=== PATIENT | male | born 1930 | race Caucasian/White ===

== ENCOUNTER 2016-10-18 03:24 | Inpatient (IN) | payer MEDICARE, OTHER ==
--- NOTE | ~2016-10-18 | CN ---
Consultation Report [facility] [address] [facility] [place]. [address] NAME: PAIGE CHAVEZ : 32 STATUS : ADM IN [facility]#: [id number] AGE: 86 ADM/REG DATE : 10/18/16 MR#: [id number] REPORT SERV DATE: 10/19/16 DICTATED BY: DATE: REPORT STATUS : Draft TRANSCRIBED BY: MODL DATE: 10/19/16 CONSULTATION DATE OF CONSULTATION: REASON FOR CONSULTATION: Acute kidney injury and volume overload. HISTORY OF PRESENT ILLNESS: Mr. Chavez is an 86-year-old white male who denies any history of kidney disease in the past. On review of records in 2014, his creatinine was around 1.3 and it looks like through the records for years it was around that. He presented to the hospital with shortness of breath. No chest pain. Apparently, his symptoms started approximately a little over a month ago. He states he does a lot of outdoor activities and is a very active person, and then suddenly approximately a month to month and a half ago was out doing his regular activities and got short of breath. He had evaluation by his regular medical doctor and script editor, was put on some Lasix and some breathing medicines without improvement. In fact, his shortness of breath has continued to increase. On his arrival to the emergency room, he had significant pulmonary edema. He is also tachycardic in the 130s. Given this, he was admitted and diuresed. On his arrival, his creatinine was 1.7, today was 2.24. It has been rechecked since the morning value and down to 2. He has had a little bit of hyperkalemia. Shortness of breath is significantly improved. He denies any dysuria or hematuria. His echocardiogram reveals an EF of 55% with tnbo-op-ynroltfa aortic valve prosthetic regurgitation, EF of 55%. He was having significant orthopnea. He does not know if this has improved yet, but his orthopnea symptoms over the last month to month and a half have significantly progressed. States he really has not slept well any at that time. PAST MEDICAL HISTORY: CHF, coronary artery disease with coronary bypass, AVR, atrial fibrillation, COPD. SOCIAL HISTORY: He is . Lives with his . Has a distant history of tobacco use. Quit some time ago and only smoked for 15 years. No alcohol or illicit drug use. FAMILY MEDICAL HISTORY: No end-stage renal disease. ALLERGIES: NONE. MEDICATIONS: Lipitor, Plavix, coenzyme Q10, NovoLog, Toprol, Anoro Ellipta. He is on Lasix at home. REVIEW OF SYSTEMS: A 12-point review of systems obtained and negative with the exception that in HPI. PHYSICAL EXAMINATION: VITAL SIGNS: Temperature 98, blood pressure 152/74, pulse 108, respiratory rate 18, O2 saturation is 97% on 5 L. Consultation Report [address] [address] NAME: PAIGE CHAVEZ : 32 STATUS : ADM IN PAT#: [id number] AGE: 86 ADM/REG DATE : 10/18/16 MR#: [id number] REPORT SERV DATE: 10/19/16 DICTATED BY: DATE: REPORT STATUS : Draft TRANSCRIBED BY: DEQUAN DATE: 10/19/16 GENERAL: This is a pleasant, cooperative white male. He is awake, alert, and oriented x3, in no acute distress. Answers questions appropriately. Normocephalic and atraumatic. Conjunctivae clear. Sclerae anicteric. Pupils are equal and round. Oral mucosa is moist. NECK: Supple. Carotids are brisk. Neck veins flat. No lymphadenopathy. LUNGS: Respirations are even and unlabored at this point. HEART: Rate is regular. He does have a systolic murmur. ABDOMEN: Soft, nontender. Bowel sounds are active. No masses or hepatosplenomegaly. No bruits. No CVA tenderness. BACK: Within normal limits. EXTREMITIES: Trace edema. No cyanosis or clubbing. SKIN: Warm, dry, and intact. No unusual rashes or skin lesions. NEURO: No focal deficits. Mood and affect, pleasant and appropriate. PERTINENT LABS AND X-RAYS: Sodium 138, potassium 4.7, chloride 103, CO2 of 28, BUN of 39, creatinine of 2, calcium of 9. WBCs 23,000, H and H 14 and 42, platelets 149,000. Chest x- ray, significant improvement in edema, but he has bilateral pleural effusions. Procalcitonin of 0.1. Urinalysis, no protein. He has had small amount of blood on dipstick, but under microscopic exam, only 1 red blood cell per high-power field. IMPRESSION: 1. Acute kidney injury on chronic kidney disease. 2. Pulmonary edema. 3. Pleural effusion. 4. Aal-HT-zldbeufmh myocardial infarction. 5. Atrial fibrillation with rapid ventricular response. 6. History of aortic valve replacement. 7. Chronic obstructive pulmonary disease. PLAN/RECOMMENDATION: Acute kidney injury on CKD secondary to cardiorenal syndrome and creatinine is already improving. We will follow I's and O's and labs. We will start on oral diuretic therapy. We will start with Demadex 20 as Lasix 20 at home was not keeping fluid off. We will follow labs with you. Thank you for the consultation. MARTINA/DEQUAN MARTHA Brink / [id number] CC: Consultation Report [address] [place]. [address] NAME: PAIGE CHAVEZ : 32 STATUS : ADM IN PAT#: [id number] AGE: 86 ADM/REG DATE : 10/18/16 MR#: [id number] REPORT SERV DATE: 10/19/16 DICTATED BY: DATE: REPORT STATUS : Draft TRANSCRIBED BY: MODL DATE: 10/19/16 Estuardo Pepe Jr, MD
--- NOTE | ~2016-10-18 | DS ---
Discharge Summary [facility] [address] [place]. [address] NAME: PAIGE CHAVEZ : 32 STATUS : DIS IN PAT#: [id number] AGE: 86 ADM/REG DATE : 10/18/16 MR#: [id number] REPORT SERV DATE: 10/24/16 DICTATED BY: GENI ROBERTS DATE: 10/23/16 REPORT STATUS : Draft TRANSCRIBED BY: MODL DATE: 10/23/16 ADMISSION DATE: 10/18/2016 DISCHARGE DATE: 10/23/2016 DISCHARGE DIAGNOSES: 1. Acute hypoxic respiratory failure from fluid overload, now the patient does not require home oxygen. 2. Acute kidney injury on chronic kidney disease, stable. 3. Atrial fibrillation and flutter, the patient is rate controlled, and Dr. Corral added Cardizem CD 120 mg once a day on top of his Toprol. 4. Leukocytosis without evidence of infection. 5. Acute on chronic valvular heart disease, failure with volume overload from atrial regurgitation, moderate. 6. Elevated troponin without significant clinical significance. 7. Hyperlipidemia. 8. Bilateral pleural effusions, improved with diuretics. 9. Chronic obstructive pulmonary disease. CONSULTANTS: 1. Dr. Jordan Corral. 2. Dr. Schneider in Pulmonary Medicine. 3. Dr. Moreno from [facility]. HISTORY OF PRESENT ILLNESS: This is an 86-year-old male patient, who came to the hospital with shortness of breath with evidence of fluid overload. Please see dictated H and P. HOSPITAL COURSE: Please see dictated interim discharge summary done by Dr. Pepe. The patient is admitted to hospital with heart failure and atrial fibrillation, and was diuresed. Had a cardiac workup with echocardiogram and nuclear test. Echocardiogram showed a new finding of moderate aortic valve regurgitation. The patient's atrial fibrillation was rate controlled. Calcium channel bi was added and his hypoxia has improved. He does not require home oxygen, and stabilized. Therefore, the patient has decided to go home and follow up with Dr. Corral as an outpatient. Overall, had improvement with IV diuretics and rate control and now, the patient will be discharged home in stable condition. DISCHARGE MEDICATIONS: Cardizem CD 120 mg once a day in addition to his home medications. DISPOSITION: The patient is discharged to home without home oxygen. The patient will be followed by Pulmonary, Dr. Corral, and primary care physician. TIME SPENT: More than 30 minutes. Discharge Summary [address] [address] NAME: PAIGE CHAVEZ : 32 STATUS : DIS IN PAT#: [id number] AGE: 86 ADM/REG DATE : 10/18/16 MR#: [id number] REPORT SERV DATE: 10/24/16 DICTATED BY: GENI ROBERTS DATE: 10/23/16 REPORT STATUS : Draft TRANSCRIBED BY: DEQUAN DATE: 10/23/16 DICTATED BY: Fernando Earl/DEQUAN Geni Roberts M.D. / [id number] CC: Fernando Earl M.D.
--- NOTE | ~2016-10-18 | IDS ---
Interim Discharge Summary [facility] [address] [place]. [address] NAME: PAIGE CHAVEZ : 32 STATUS : ADM IN [facility]#: [id number] AGE: 86 ADM/REG DATE : 10/18/16 MR#: [id number] REPORT SERV DATE: 10/23/16 DICTATED BY: JR. PEPE WILLIAM JOHN DATE: 10/22/16 REPORT STATUS : Draft TRANSCRIBED BY: MODL DATE: 10/22/16 ADMISSION DATE: 10/18/2016 DISCHARGE DATE: 10/22/2016 This interim summary will cover the time period from 10/18/2016 through 10/22/2016. WORKING DIAGNOSES: Include 1. Acute hypoxic respiratory failure due to fluid overload. 2. Acute kidney injury. 3. Atrial fibrillation/flutter. 4. Leukocytosis without evidence of infection. 5. Acute on chronic valvular heart failure with volume overload. 6. Elevated troponin. 7. Hypoglycemia with hemoglobin A1c of 5.7. 8. History of coronary artery disease with bypass grafting. 9. History of aortic valve replacement with regurgitation. 10.Hypokalemia. OPERATIONS, PROCEDURES, AND TREATMENTS: Include 1. Chest x-ray done 10/18/2016, which showed volume overload with bibasilar consolidation. 2. Echocardiogram done 10/18/2016, showed left ventricular systolic function of 55% with right ventricular function at the lower limits of normal. There was dilated left atrium. There was ledm-ue-lzncaxib aortic prosthetic regurgitation which was new since 08/11/2008. 3. Renal ultrasound done 10/20/2016, showed a small nonobstructing bilateral intrarenal calculi, otherwise normal. 4. Chest x-ray done 10/21/2016, showed mildly improved moderate bilateral pleural effusion compared to 10/19/2016, with stable bypass changes. 5. Chest x-ray done 10/22/2016, is pending. CURRENT MEDICATIONS: Please see today's progress note. CONSULTING PHYSICIANS: Include 1. Dr. Lc Pak of pulmonary Medicine. 2. Dr. Cohen of Cardiology. 3. Dr. Moreno of Nephrology. BRIEF HOSPITAL COURSE: This is an 86-year-old male, who presented to the emergency room on 10/18/2016, with complaint of shortness of breath. The patient has a history of heart failure, coronary artery disease with prior bypass, history of aortic valve replacement. The patient had been in a declining state of health for the past few months with increased shortness of breath and dyspnea on exertion. He had recently met with his wire winder, Dr. Soham Velasquez, who gave him some inhalers that did not help. He presented to the emergency room and was in atrial fibrillation with rapid ventricular response at that time and he was placed on a Cardizem drip. Interim Discharge Summary [facility] [id number] [place]. [address] NAME: PAIGE CHAVEZ : 32 STATUS : ADM IN PAT#: [id number] AGE: 86 ADM/REG DATE : 10/18/16 MR#: [id number] REPORT SERV DATE: 10/23/16 DICTATED BY: JR. PEPE WILLIAM JOHN DATE: 10/22/16 REPORT STATUS : Draft TRANSCRIBED BY: DEQUAN DATE: 10/22/16 Initial exam showed a temperature 97.2, blood pressure 172/100, heart rate 137, and respiratory rate of 20. Lung exam showed no crackles. Cardiac exam was rapid. Troponin was 0.07 and brain natriuretic peptide was 266. Chest x-ray as detailed above. EKG showed rapid ventricular response. The patient is admitted to [facility]. He was seen in consultation by Dr. Cohen of Cardiology who recommended echocardiogram and diuresis. The patient was placed on Bumex 1 mg IV q.8 hours and remained on a Cardizem drip. Followup troponins remained elevated, peaking at 0.82. The patient was placed on heparin drip, converted to oral diltiazem and he is planned for a cardiac catheterization today 10/22/2016. He is getting renally protective measures before and after. Regarding the patient's acute kidney injury with diuresis, the patient really did not diurese well; however, his renal markers increased from admission BUN and creatinine of 24 and 1.7 to a BUN of 37 and creatinine of 2.2 on 10/19/2016. The patient was seen in consultation by Nephrology. Diuresis was slowly tapered off, and the patient's renal function improved to a present level of BUN 31 and creatinine 1.5. Regarding atrial fibrillation and flutter, this was controlled with diltiazem. Regarding leukocytosis, the patient had elevated white blood count of 25.5 on 10/19/2016. The night call team was called and the patient was initially placed on vancomycin. Followup procalcitonin, urinalysis, chest x-ray showed no evidence of infection and the patient's antibiotics were stopped and the same morning they were begun. There has been no evidence of infection since that time. As to the valvular heart disease, the patient has a history of aortic valve replacement. Echocardiogram did show moderate regurgitation through this valve which may explain his shortness of breath and hypoxia. The patient was, at one point, on 10 L of oxygen by nasal cannula. Pulmonology was consulted and optimized his inhaled medications. His oxygen has been weaned off without conversational dyspnea. Regarding the patient's, hypoglycemia, his hemoglobin A1c was 5.7, his blood sugars are well controlled on sliding scale insulin. Plan for the patient is possible catheterization today. Check a basic metabolic profile in the morning and discharge after the catheterization if the catheterization is okay and renal function remained stable. My partner will assume care in the morning. EDIN/DEQUAN Estuardo Morataya Interim Discharge Summary [address] [address] NAME: PAIGE CHAVEZ : 32 STATUS : ADM IN PAT#: [id number] AGE: 86 ADM/REG DATE : 10/18/16 MR#: [id number] REPORT SERV DATE: 10/23/16 DICTATED BY: JR. PEPE WILLIAM JOHN DATE: 10/22/16 REPORT STATUS : Draft TRANSCRIBED BY: DEQUAN DATE: 10/22/16 Jr Pepe MD / [id number] CC: Estuardo Pepe Jr, MD Patrick Rhyne, M.D.
--- NOTE | ~2016-10-18 | CN ---
Consultation Report [facility] [address] [place]. [address] NAME: ABRAHAM CHAVEZ : 32 STATUS : ADM IN PAT#: [id number] AGE: 86 ADM/REG DATE : 10/18/16 MR#: [id number] REPORT SERV DATE: 10/19/16 DICTATED BY: GUERO NIEVES DATE: 10/19/16 REPORT STATUS : Draft TRANSCRIBED BY: MODL DATE: 10/19/16 CONSULTATION DATE OF CONSULTATION: 10/19/2016 CHIEF COMPLAINT: Shortness of breath in a patient with volume overload and bilateral pleural effusions. HISTORY OF PRESENT ILLNESS: Mr. Abraham Chavez is a very pleasant 86-year-old white male with a past medical history significant for coronary artery disease, status post CABG, atrial valve repair, atrial fibrillation, and COPD, who presents to [facility] Emergency Room for with complaints of worsening shortness of breath of approximately four weeks' duration. It should be noted that Mr. Chavez has done quite well as an outpatient given his advanced age and comorbidities. Mr. Chavez has recently established his care with Dr. Soham Velasquez for his outpatient pulmonary needs. Per report, he had pulmonary function testing which demonstrated COPD. The patient is unaware of the severity. He is recently started on Anoro Ellipta. The patient quit smoking in 1964, prior to this time, he smoked maybe one pack a day for a period of 15 years. He denies symptomatology consistent with obstructive sleep apnea. Prior to this recent illness, the patient has described his exercise tolerance as excellent often times running 3 miles a day. The patient states that over the last four weeks, he has began to develop worsening shortness of breath. He was eventually seen by his primary care physician who started him on 20 mg of Lasix primarily for his worsening lower extremity edema. He was later referred to our outpatient clinic, but was unable to be seen in a timely fashion and as such was seen by Dr. Soham Velasquez. By his report, he did have pulmonary function testing which suggested COPD and was initiated on an inhaler. His shortness of breath continued to worsen, and he describes worsening lower extremity edema as well as orthopnea. This became so pronounced that he eventually presented to [facility]'s Emergency Room. Upon arrival, the patient was found to be hypertensive. He had a heart rate of 137. His oxygenation was only 84% on supplemental oxygen. Initial blood work revealed a white blood cell count of 10,900. His BNP was 266. His creatinine at this time was 1.67. He did undergo arterial blood gas sampling which revealed a pH 7.52, PaCO2 of 52, PaO2 of 78, and a bicarb of 22.6. EKG suggested that the patient had atrial fibrillation with rapid ventricular response. The patient was placed on Cardizem. BiPAP was ordered although not initiated. The patient did receive IV Lasix. A chest x-ray was obtained, which revealed pulmonary edema as well as bilateral pleural effusions. The patient has subsequently been seen by Cardiology who has continued to diurese with significant improvement in the patient's pulmonary status. He is still requiring supplemental oxygen and does have some persistent dyspnea. For the aforementioned reasons, he has been referred to the Pulmonary Service for further assessment. Consultation Report [address] [address] NAME: ABRAHAM CHAVEZ : 32 STATUS : ADM IN [facility]#: [id number] AGE: 86 ADM/REG DATE : 10/18/16 MR#: [id number] REPORT SERV DATE: 10/19/16 DICTATED BY: GUERO NIEVES DATE: 10/19/16 REPORT STATUS : Draft TRANSCRIBED BY: DEQUAN DATE: 10/19/16 Currently, Mr. Chavez's main pulmonary complaint is shortness of breath. This is worse on exertion and relieved by rest. He does have some persistent oxygen requirements and being on 5 L. He denies productive cough. He has no wheezing. He denies recent upper respiratory infections. He denies previous pneumonias. He does have a formal diagnosis of COPD, but is unaware of the severity. The patient currently denies any murmurs, angina, or palpitations. He does confirm recent worsening orthopnea and dependent edema. In regard to constitutional symptoms, he currently denies fever, chills, nausea, vomiting, chest pain, or abdominal pain. PAST MEDICAL HISTORY: 1. Coronary artery disease, status post CABG in 2008. 2. Atrial fibrillation. 3. COPD. 4. Prostate cancer. PAST SURGICAL HISTORY: 1. CABG. 2. Aortic valve repair. 3. Prostatectomy. FAMILY HISTORY: The patient denies family history of lung disease. SOCIAL HISTORY: The patient is . He previously served in the . 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 He denies any known exposures to dust, silica, or asbestos. TOBACCO/ALCOHOL: As previously mentioned, the patient quit smoking in 1965, prior to this time, he smoked approximately one pack a day for a period of 15 years. MEDICATIONS: Eliquis 2.5 mg, atorvastatin 80 mg, clopidogrel 75 mg, diazepam 5 mg, famotidine 20 mg, furosemide 20 mg, metoprolol 50 mg, and Anoro Ellipta. ALLERGIES: THE PATIENT HAS NO DRUG ALLERGIES. REVIEW OF SYSTEMS: A complete review of systems was performed with pertinent positives and negatives contained within the body of the HPI. PHYSICAL EXAMINATION: VITAL SIGNS: Blood pressure is 143/66, heart rate is 110, T-max is 99.4, respiratory rate is 20, and SpO2 is 94% on 5 L nasal cannula. GENERAL: Mr. Abraham Chavez is a very pleasant 86-year-old white male. He is not currently exhibiting any signs of acute distress. Consultation Report [address] [address] NAME: ABRAHAM CHAVEZ : 32 STATUS : ADM IN [facility]#: [id number] AGE: 86 ADM/REG DATE : 10/18/16 MR#: [id number] REPORT SERV DATE: 10/19/16 DICTATED BY: GUERO NIEVES DATE: 10/19/16 REPORT STATUS : Draft TRANSCRIBED BY: DEQUAN DATE: 10/19/16 SKIN: With appropriate texture and turgor. No rashes, lesions, or ulcers. HEENT: Head: Skull is normocephalic, atraumatic. No masses or lesions. Eyes: Sclerae anicteric. Conjunctiva pink without exudates. Ears: Auricles and tragus without pain to palpation. Nose: Bilateral nasal patency. Throat: Dentition in good repair. Lips, oral mucosa, tongue, palate, and pharynx pink and moist without lesions. NECK: Neck is supple. Trachea midline. THORAX/LUNGS: Thorax is symmetric with equal chest rise. Dullness to percussion posteriorly up to T7. No rales, wheezes, or rhonchi. Very diminished in the bases. CARDIOVASCULAR: Irregular rate and rhythm. ABDOMEN: Soft. Nondistended, nontender. PERIPHERAL VASCULAR: Mild edema, right greater than left. MUSCULOSKELETAL: Full AROM and PROM in all joints. NEUROLOGIC: Cranial nerves 2 through 12 grossly intact. Good muscle bulk and tone bilaterally. PSYCHIATRIC: The patient demonstrates good judgment and insight. The patient is alert and oriented x3. ACCESSORY DATA: Reveals a procalcitonin 0.10, BNP is 266.1, troponin peaked as high as 0.82. Repeat arterial blood gas reveals pH 7.41, PaCO2 of 33, PaO2 of 78, and a bicarb of 20.1. White blood cell count is 25,500. Chest x-ray reveals edema and bilateral pleural effusions. Echocardiogram reveals left ventricular ejection fraction of 55%. Jhrj-oj-ltutfwrs aortic regurgitation. IMPRESSION: 1. Atrial fibrillation with rapid ventricular response. 2. Volume overload. 3. Elevated troponin. 4. Aortic valve regurgitation, tcbw-we-ugmxkysx. 5. Acute kidney injury. 6. Bilateral pleural effusions. 7. Chronic obstructive pulmonary disease. PLAN: 1. Cardiology is currently managing the patient's arrhythmia as well as elevated troponin levels. 2. Nephrology has been consulted in regard to continuing diuretics. 3. In regard to the patient's bilateral pleural effusions, they are likely cardiogenic in nature. We will surveil these with followup chest x-ray and hopefully continue diuretic therapy. 4. In regard to the patient's COPD, we will provide him with bronchodilators. The aforementioned impression and plan has been discussed with Dr. Oakley, who will follow Consultation Report [address] [place]. [address] NAME: ABRAHAM CHAVEZ : 34 STATUS : ADM IN [facility]#: [id number] AGE: 86 ADM/REG DATE : 10/18/16 MR#: [id number] REPORT SERV DATE: 10/19/16 DICTATED BY: GUERO NIEVES DATE: 10/19/16 REPORT STATUS : Draft TRANSCRIBED BY: MODL DATE: 10/19/16 further recommendations. We thank you for this consult and look forward to participating in the care of Mr. Abraham Chavez. GBS/MODL Guero Nieves PA-C / [id number] CC: Estuardo Pepe Jr, MD
--- NOTE | ~2016-10-18 | HP ---
History And Physical [address] [facility] [place]. [address] NAME: PAIGE CHAVEZ : 32 STATUS : ADM Ricardo PAT#: [id number] AGE: 86 ADM/REG DATE : 10/18/16 MR#: [id number] REPORT SERV DATE: 10/18/16 DICTATED BY: OREN RAIN DATE: 10/18/16 REPORT STATUS : Draft TRANSCRIBED BY: MODL DATE: 10/18/16 DATE OF ADMISSION: 10/18/2016 CHIEF COMPLAINT: Shortness of breath. HISTORY OF PRESENT ILLNESS: This is an 86-year-old male, who has a history of congestive heart failure, coronary artery disease with CABG, history of aortic valve replacement, who presents to the emergency room at [facility] with the above-mentioned complaint. History is obtained from the patient and his daughter who is at bedside, I have reviewed the records available on the [facility] system as well. According to Mr. Chavez and his daughter, he had been in his usual state of health, but in the last two months or so he has been slowly declining. His daughter states he has been increasingly more short of breath, especially with exertion and this was becoming worse. They had recently met with Dr. Soham Velasquez, his flight agent, who had run tests and told him that he had COPD, had provided some inhaler medications for treatment as well. However, this has not helped and he continued to get more short of breath. In the last 24 hours he could not even perform activities of daily living and he decided to come to the emergency room to be evaluated. He is a patient of Dr. Jordan Corral. In the emergency room he initially presented with atrial fibrillation with rapid ventricular response, was started on Cardizem infusion for rate control. His chest x-ray showed bilateral pulmonary edema and had slightly elevated BNP as well. He also had hyperglycemia and a slightly elevated troponin as well. Hospitalist Service is asked to admit him for further evaluation and treatment. At the time of my evaluation, he denied any chest pain or palpitations. He does have orthopnea at home. He has gone from one pillow to almost three, sometimes has to sit up in the recliner all night. He has had a cough which was essentially nonproductive, not associated with any hemoptysis, night sweats, or weight loss. He has not had any fevers, chills, nausea, vomiting, diarrhea. Has not had any recent falls or loss of consciousness. No history of hematemesis, hematochezia, or hematuria. No other history of recent travel or exposures other than those mentioned above. 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 SOCIAL HISTORY: He has a remote history of smoking, but has not smoked in a long time. He takes an occasional drink, but denied any recreational drug use. 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 FAMILY HISTORY: Noncontributory. MEDICATIONS: His medications at home were reviewed by me in the chart today and reordered by me. History And Physical [address] [address] NAME: PAIGE CHAVEZ : 32 STATUS : ADM Ricardo PAT#: [id number] AGE: 86 ADM/REG DATE : 10/18/16 MR#: [id number] REPORT SERV DATE: 10/18/16 DICTATED BY: OREN RAIN DATE: 10/18/16 REPORT STATUS : Draft TRANSCRIBED BY: DEQUAN DATE: 10/18/16 REVIEW OF SYSTEMS: As in history of present illness. All other systems were reviewed in detail and are quite unremarkable. PHYSICAL EXAMINATION: GENERAL: This is a pleasant 86-year-old, not in any acute distress. HEENT: Head is atraumatic and normocephalic. He is alert, awake, oriented to time, place, and person. Pupils are equal, reacting to light and accommodating. External ocular muscles are intact. Membranes are moist and pink. Sclerae are nonicteric. NECK: Supple with no jugular venous distention, lymphadenopathy, or thyromegaly. LUNGS: Clear to auscultation with no wheezes, rubs, or crackles. HEART: Heart sounds were irregularly irregular. ABDOMEN: Soft and nontender. Bowel sounds are present. EXTREMITIES: Trace bilateral pitting lower extremity edema, otherwise without any cyanosis, or clubbing. NEUROLOGIC: Grossly intact. No focal sensory or motor deficits. He was able to move all four extremities. Higher functions appeared intact. VITAL SIGNS: His vital signs today showed a temperature of 97.2, pulse 137, respirations 30 a minute, blood pressure was 172/100 upon arrival. Oxygen saturations were 98% on 3 L of oxygen via nasal cannula. LABORATORY DATA: Reviewed on the [facility] system showed a pH of 7.25 on an arterial blood gas, pCO2 was 52, PO2 was 78, and bicarb was 22.3. This was on room air. CMP showed a sodium of 141, potassium of 4.3, chloride 107, CO2 of 24, BUN was 24 with a creatinine of 1.67 which is up from his baseline. The blood glucose was 233. His alkaline phosphatase was 151, ALT and AST were 41 and 49. Troponin was elevated at 0.07 today. BNP was elevated at 266.1. Lactate was 1.8 today. CBC showed a white blood cell count of 10,900. Normal hemoglobin, hematocrit, and platelet count. Urinalysis was not done today. Films of the chest x-ray were reviewed by me on the PACS today and interpreted by me. Today's films were compared to prior films available on the PACS as well. Per my interpretation, there is bilateral pulmonary edema with cardiomegaly and sternotomy in the past. A 12-lead EKG done in the emergency room was reviewed and interpreted by me. There is atrial fibrillation with rapid ventricular response at a rate of 134. IMPRESSION: 1. Shortness of breath. 2. Atrial fibrillation with rapid ventricular response. 3. Volume overload. 4. Acute exacerbation of congestive heart failure. History And Physical [address] [address] NAME: PAIGE CHAVEZ : 32 STATUS : ADM Ricardo PAT#: [id number] AGE: 86 ADM/REG DATE : 10/18/16 MR#: [id number] REPORT SERV DATE: 10/18/16 DICTATED BY: OREN RAIN DATE: 10/18/16 REPORT STATUS : Draft TRANSCRIBED BY: MODL DATE: 10/18/16 5. Acute kidney injury. 6. Hyperglycemia. 7. Elevated troponin. 8. Coronary artery disease with history of coronary artery bypass graft. 9. Aortic valve replacement. PLAN: We will admit Mr. Chavez to the Hospitalist Service with cardiac telemetry for a 24- hour observation period. We will start him on Cardizem infusion for rate control and titrate accordingly. We will also start him on intravenous diuretics, follow output and weights, and get an echocardiogram as well. We will also go ahead and check his A1c. Start him on NovoLog insulin per sliding scale for blood sugar control. We will also follow serial troponins to rule out any acute coronary syndrome, although this elevation may be secondary to demand ischemia. The patient was also started on intravenous heparin infusion in the emergency room for his atrial fibrillation, which we will continue. We will go ahead and consult Dr. Jordan Corral to see him in the morning. Meanwhile, we will start him on bronchodilator treatments, continue supplemental oxygen therapy, and repeat chemistry and CBC in the morning as well. Please see today's orders for all the details. I have discussed the above plans with the patient and his daughter. Their questions were answered and they are agreeable to the above recommendations. Hospitalist Service will be following him during his stay here. /DEQUAN Oren Rain M.D. / [id number] CC: Estuardo Pepe Jr, MD
[2016-10-18 01:39] LABS: BE (BASE EXCESS) -5.5 MEQ/L (0 +/- 2.5); HCO3 (ACTUAL BICARBONATE) 22.3 MEQ/L (23-27); INSTRUMENT SERIAL # 8087; PCO2 (CO2 TENSION) 52 MMHG (35-45); PO2 (O2 TENSION) 78 MMHG (79-93); pH 7.25 (7.37-7.43)
[2016-10-18 01:40] LABS: ALLENS TEST Pos; DEVICE NC; HEMOBLOGIN CONTENT 16.3 G/DL (14-18); METHEMOGLOBIN 0.4 % (0-3); O2 CONTENT 21.1 VOL% (18-24); OPERATOR ID 33449; SAMPLE Arterial
[2016-10-18 02:01] LABS: BASOPHILS 0.7 %; BASOPHILS ABSOLUTE 0.08 10/3/uL (0.0-0.16); EOSINOPHILS 2.1 %; EOSINOPHILS ABSOLUTE 0.23 10/3/uL (0.0-0.53); HEMATOCRIT 45.4 % (40.0-51.0); HEMOGLOBIN 15.4 g/dL (13.6-17.8); IMMATURE GRANULOCYTES 0.6 %; IMMATURE GRANULOCYTES ABSOLUTE 0.06 10/3/uL (0.0-0.11); LYMPHOCYTES 24.7 %; LYMPHOCYTES ABSOLUTE 2.68 10/3/uL (0.67-4.30); MEAN CORPUS HGB CONC 33.9 g/dL (32.0-36.0); MEAN CORPUSCULAR HEMOGLOB 31.2 pg (26.0-34.0); MEAN PLATELET VOLUME 12.3 fL (9.2-13.0); MONOCYTES 6.2 %; MONOCYTES ABSOLUTE 0.67 10/3/uL (0.21-1.20); NEUTROPHILS 65.7 %; NEUTROPHILS ABSOLUTE 7.13 10/3/uL (2.02-8.40); PLATELET COUNT 168 10/3/uL (150-400); RBC DISTRIBUTION WIDTH 14.1 % (12.0-16.0); RED CELL COUNT 4.94 10/6/uL (4.7-6.1); WHITE BLOOD CELLS 10.9 10/3/uL (4.5-10.5)
[2016-10-18 02:08] LABS: MANUAL DIFF NO %; MEAN CORPUSCULAR VOLUME 91.9 fL (80-100)
[2016-10-18 02:12] LABS: INTERNATIONAL NORMAL RATI 1.3 UNITS (-); PARTIAL THROMBO TIME 27.5 SEC (22.5-37.2)
[2016-10-18 02:40] LABS: ALBUMIN 3.8 G/DL (3.5-5.0); ALKALINE PHOSPHATASE 151 U/L (45-117); BUN (BLOOD UREA NITROGEN) 24 MG/DL (6-23); CALCIUM, SERUM 8.6 MG/DL (8.5-10.4); CHEST PAIN PROFILE TAT 0 Hrs 00 Mins; CHLORIDE, SERUM 107 MMOL/L (96-112); CO2 (CARBON DIOXIDE) 24 MMOL/L (24-34); CREATININE 1.67 MG/DL (0.70-1.30); DIRECT BILIRUBIN 0.2 MG/DL (0.0-0.4); GFR AFRICAN AMERICAN 43 ML/MIN (>=60); GFR NON AFRICAN AMERICAN 37 ML/MIN (>=60); GLUCOSE, SERUM 233 MG/DL (60-99); INDIRECT BILIRUBIN(NOT ORDER) 0.5 MG/DL (0.1-0.9); POTASSIUM, SERUM 4.3 MMOL/L (3.5-5.3); SGOT(AST) 49 U/L (5-40); SGPT(ALT) 41 U/L (5-65); SODIUM, SERUM 141 MMOL/L (135-148); TOTAL BILIRUBIN 0.7 MG/DL (0-1.2); TOTAL PROTEIN 7.5 G/DL (6.0-8.5); TROPONIN I 0.07 NG/ML (<0.05)
[2016-10-18 02:44] LABS: LACTATE 1.8 MMOL/L (0.3-2.4)
[~2016-10-18 03:24] MED LIST: ACET500CAP PO; AMOXIL500 MG PO; ASAB PO; BEN25 PO; COQ10100 MG OR; DUREZOL0.05 % OP; ELIQUIS 2.5 MG2.5 MG PO; LIPITOR40 PO; LIPITOR80 MG PO; NITROSTAT0.4 MG SL; PEP20 PO; PEPCID AC PO; PLAVIX PO; TOPXL50 PO; V5 PO; [UNRECOGNIZED DRUG - OTHER]
[2016-10-18 08:40] LABS: BASOPHILS 0.1 %; BASOPHILS ABSOLUTE 0.01 10/3/uL (0.0-0.16); EOSINOPHILS 0.1 %; EOSINOPHILS ABSOLUTE 0.01 10/3/uL (0.0-0.53); HEMATOCRIT 44.7 % (40.0-51.0); HEMOGLOBIN 14.8 g/dL (13.6-17.8); IMMATURE GRANULOCYTES 0.5 %; IMMATURE GRANULOCYTES ABSOLUTE 0.06 10/3/uL (0.0-0.11); LYMPHOCYTES 3.3 %; LYMPHOCYTES ABSOLUTE 0.44 10/3/uL (0.67-4.30); MANUAL DIFF NO %; MEAN CORPUS HGB CONC 33.1 g/dL (32.0-36.0); MEAN CORPUSCULAR HEMOGLOB 30.5 pg (26.0-34.0); MEAN PLATELET VOLUME 12.3 fL (9.2-13.0); MONOCYTES 0.8 %; NEUTROPHILS 95.2 %; NEUTROPHILS ABSOLUTE 12.59 10/3/uL (2.02-8.40); PLATELET COUNT 142 10/3/uL (150-400); RBC DISTRIBUTION WIDTH 14.1 % (12.0-16.0); RED CELL COUNT 4.86 10/6/uL (4.7-6.1); WHITE BLOOD CELLS 13.2 10/3/uL (4.5-10.5)
[2016-10-18 09:07] LABS: BUN (BLOOD UREA NITROGEN) 24 MG/DL (6-23); CHLORIDE, SERUM 104 MMOL/L (96-112); CK-MB 10.1 NG/ML; CO2 (CARBON DIOXIDE) 25 MMOL/L (24-34); CREATININE 1.79 MG/DL (0.70-1.30); GFR AFRICAN AMERICAN 39 ML/MIN (>=60); GFR NON AFRICAN AMERICAN 34 ML/MIN (>=60); PHOSPHORUS, SERUM 2.4 MG/DL (2.5-4.5); SODIUM, SERUM 140 MMOL/L (135-148); ULTRASENSITIVE TSH 0.815 MCIU/ML (0.358-3.740)
[2016-10-18 09:08] LABS: CKMB INDEX (NOT ORD) 5.3; CPK 189 U/L (0-200); GLUCOSE, SERUM 158 MG/DL (60-99); POTASSIUM, SERUM 3.4 MMOL/L (3.5-5.3)
[2016-10-18 09:10] LABS: TROPONIN I 0.81 NG/ML (<0.05)
[2016-10-18] MEDS ORDERED: L20 PO (11:05)
[2016-10-18] MEDS ORDERED: ANOROELLIPTA INH (11:06)
[2016-10-18] MEDS ORDERED: PLAVIX PO (11:07)
[2016-10-18] MEDS ORDERED: LIPITOR80 MG PO (11:07)
[2016-10-18] MEDS ORDERED: V5 PO (11:07)
[2016-10-18] MEDS ORDERED: ACET500CAP PO (11:07)
[2016-10-18] MEDS ORDERED: ELIQUIS 2.5 MG2.5 MG PO (11:07)
[2016-10-18] MEDS ORDERED: TOPXL50 PO (11:07)
[2016-10-18] MEDS ORDERED: PEP20 PO (11:08)
[2016-10-18] MEDS ORDERED: BEN25 PO (11:08)
[2016-10-18] MEDS ORDERED: CO Q-10100 MG PO (11:08)
[2016-10-18] MEDS ORDERED: NITROSTAT0.4 MG SL (11:09)
[2016-10-18] MEDS ORDERED: DUREZOL OPH (11:09)
[2016-10-18 16:30] LABS: TROPONIN I 0.82 NG/ML (<0.05)
[2016-10-19 00:12] LABS: TROPONIN I 0.77 NG/ML (<0.05)
[2016-10-19 01:30] LABS: HEMATOCRIT 42.7 % (40.0-51.0); HEMOGLOBIN 14.2 g/dL (13.6-17.8); MEAN CORPUS HGB CONC 33.3 g/dL (32.0-36.0); MEAN CORPUSCULAR HEMOGLOB 30.6 pg (26.0-34.0); MEAN PLATELET VOLUME 12.4 fL (9.2-13.0); PLATELET COUNT 148 10/3/uL (150-400); RBC DISTRIBUTION WIDTH 14.2 % (12.0-16.0); RED CELL COUNT 4.64 10/6/uL (4.7-6.1)
[2016-10-19 01:31] LABS: WHITE BLOOD CELLS 25.5 10/3/uL (4.5-10.5)
[2016-10-19 01:32] LABS: MANUAL DIFF YES %
[2016-10-19 01:41] LABS: CALCIUM, SERUM 8.7 MG/DL (8.5-10.4); CHLORIDE, SERUM 104 MMOL/L (96-112); CO2 (CARBON DIOXIDE) 26 MMOL/L (24-34); CREATININE 2.24 MG/DL (0.70-1.30); GFR AFRICAN AMERICAN 30 ML/MIN (>=60); GFR NON AFRICAN AMERICAN 26 ML/MIN (>=60); GLUCOSE, SERUM 150 MG/DL (60-99); POTASSIUM, SERUM 5.6 MMOL/L (3.5-5.3); SODIUM, SERUM 136 MMOL/L (135-148)
[2016-10-19 01:42] LABS: BUN (BLOOD UREA NITROGEN) 37 MG/DL (6-23)
[2016-10-19 02:28] LABS: BAND NEUTROPHILS 1 %; LYMPHOCYTES 11 %; LYMPHOCYTES ABSOLUTE (CALC) 2.81 10/3/uL (0.67-4.30); MONOCYTES 4 %; MONOCYTES ABSOLUTE (CALC) 1.02 10/3/uL (0.21-1.20); NEUTROPHILS ABSOLUTE (CALC) 21.68 10/3/uL (2.02-8.40); PLATELET ESTIMATE ADQ (ADEQUATE); RBC MORPHOLOGY NORM (NORMAL); SEGMENTED NEUTROPHIL (0) 84 %; TOTAL NUCLEATED CELLS 100
[2016-10-19 04:33] LABS: ALLENS TEST Pos; BE (BASE EXCESS) -3.6 MEQ/L (0 +/- 2.5); CARBOXYHEMOGLOBIN 0.5 % (0-3); DEVICE HFNC; HCO3 (ACTUAL BICARBONATE) 20.1 MEQ/L (23-27); HEMOBLOGIN CONTENT 15.1 G/DL (14-18); INSTRUMENT SERIAL # 35151; METHEMOGLOBIN 0.4 % (0-3); O2 CONTENT 20.1 VOL% (18-24); OPERATOR ID 13415; PCO2 (CO2 TENSION) 33 MMHG (35-45); PO2 (O2 TENSION) 78 MMHG (79-93); SAMPLE Arterial; pH 7.41 (7.37-7.43)
[2016-10-19 06:09] LABS: ASCORBIC ACID (UR NOT ORDER) NEG (NEG); BILIRUBIN, URINE NEGATIVE (NEG); KETONE, URINE NEGATIVE (NEG); LEUKOCYTE ESTERASE(NOT OR NEG (NEG); WBC (NOT ORDERED) (RFLEX) 1 (0-5)
[2016-10-19 15:47] LABS: BASOPHILS 0.1 %; BASOPHILS ABSOLUTE 0.02 10/3/uL (0.0-0.16); EOSINOPHILS 0.3 %; EOSINOPHILS ABSOLUTE 0.06 10/3/uL (0.0-0.53); HEMATOCRIT 42.3 % (40.0-51.0); HEMOGLOBIN 14.3 g/dL (13.6-17.8); IMMATURE GRANULOCYTES 0.5 %; IMMATURE GRANULOCYTES ABSOLUTE 0.11 10/3/uL (0.0-0.11); LYMPHOCYTES 7.1 %; LYMPHOCYTES ABSOLUTE 1.64 10/3/uL (0.67-4.30); MEAN CORPUS HGB CONC 33.8 g/dL (32.0-36.0); MEAN CORPUSCULAR VOLUME 91.6 fL (80-100); MEAN PLATELET VOLUME 12.6 fL (9.2-13.0); MONOCYTES 5.8 %; MONOCYTES ABSOLUTE 1.36 10/3/uL (0.21-1.20); NEUTROPHILS 86.2 %; NEUTROPHILS ABSOLUTE 20.06 10/3/uL (2.02-8.40); PLATELET COUNT 149 10/3/uL (150-400); RBC DISTRIBUTION WIDTH 14.7 % (12.0-16.0); RED CELL COUNT 4.62 10/6/uL (4.7-6.1); WHITE BLOOD CELLS 23.3 10/3/uL (4.5-10.5)
[2016-10-19 15:48] LABS: MANUAL DIFF NO %
[2016-10-19 15:57] LABS: BUN (BLOOD UREA NITROGEN) 39 MG/DL (6-23); CHLORIDE, SERUM 103 MMOL/L (96-112); CO2 (CARBON DIOXIDE) 28 MMOL/L (24-34); CREATININE 2.07 MG/DL (0.70-1.30); GFR AFRICAN AMERICAN 33 ML/MIN (>=60); GFR NON AFRICAN AMERICAN 29 ML/MIN (>=60); GLUCOSE, SERUM 113 MG/DL (60-99); POTASSIUM, SERUM 4.7 MMOL/L (3.5-5.3); SODIUM, SERUM 138 MMOL/L (135-148)
[2016-10-20 04:06] LABS: BASOPHILS 0.4 %; BASOPHILS ABSOLUTE 0.06 10/3/uL (0.0-0.16); EOSINOPHILS 1.5 %; EOSINOPHILS ABSOLUTE 0.24 10/3/uL (0.0-0.53); HEMATOCRIT 39.4 % (40.0-51.0); HEMOGLOBIN 13.2 g/dL (13.6-17.8); IMMATURE GRANULOCYTES 0.4 %; IMMATURE GRANULOCYTES ABSOLUTE 0.07 10/3/uL (0.0-0.11); LYMPHOCYTES 10.3 %; LYMPHOCYTES ABSOLUTE 1.66 10/3/uL (0.67-4.30); MEAN CORPUS HGB CONC 33.5 g/dL (32.0-36.0); MEAN CORPUSCULAR HEMOGLOB 30.6 pg (26.0-34.0); MEAN CORPUSCULAR VOLUME 91.4 fL (80-100); MEAN PLATELET VOLUME 12.6 fL (9.2-13.0); MONOCYTES 7.2 %; MONOCYTES ABSOLUTE 1.17 10/3/uL (0.21-1.20); NEUTROPHILS 80.2 %; NEUTROPHILS ABSOLUTE 12.97 10/3/uL (2.02-8.40); PLATELET COUNT 131 10/3/uL (150-400); RBC DISTRIBUTION WIDTH 14.7 % (12.0-16.0); RED CELL COUNT 4.31 10/6/uL (4.7-6.1); WHITE BLOOD CELLS 16.2 10/3/uL (4.5-10.5)
[2016-10-20 04:08] LABS: MANUAL DIFF NO %
[2016-10-20 04:22] LABS: ALBUMIN 3.3 G/DL (3.5-5.0); BUN (BLOOD UREA NITROGEN) 40 MG/DL (6-23); CALCIUM, SERUM 8.4 MG/DL (8.5-10.4); CHLORIDE, SERUM 107 MMOL/L (96-112); CO2 (CARBON DIOXIDE) 25 MMOL/L (24-34); CREATININE 1.78 MG/DL (0.70-1.30); GFR AFRICAN AMERICAN 40 ML/MIN (>=60); GFR NON AFRICAN AMERICAN 34 ML/MIN (>=60); GLUCOSE, SERUM 109 MG/DL (60-99); SODIUM, SERUM 138 MMOL/L (135-148)
[2016-10-20 04:23] LABS: PHOSPHORUS, SERUM 4.5 MG/DL (2.5-4.5); TROPONIN I 0.39 NG/ML (<0.05)
[2016-10-21 04:34] LABS: ALBUMIN 3.3 G/DL (3.5-5.0); BUN (BLOOD UREA NITROGEN) 37 MG/DL (6-23); CALCIUM, SERUM 8.7 MG/DL (8.5-10.4); CHLORIDE, SERUM 106 MMOL/L (96-112); CO2 (CARBON DIOXIDE) 26 MMOL/L (24-34); CREATININE 1.69 MG/DL (0.70-1.30); GFR AFRICAN AMERICAN 42 ML/MIN (>=60); GFR NON AFRICAN AMERICAN 36 ML/MIN (>=60); GLUCOSE, SERUM 101 MG/DL (60-99); PHOSPHORUS, SERUM 4.5 MG/DL (2.5-4.5); POTASSIUM, SERUM 3.3 MMOL/L (3.5-5.3); SODIUM, SERUM 140 MMOL/L (135-148)
[2016-10-21 04:36] LABS: TROPONIN I 0.28 NG/ML (<0.05)
[2016-10-22 05:32] LABS: BASOPHILS 0.6 %; BASOPHILS ABSOLUTE 0.06 10/3/uL (0.0-0.16); EOSINOPHILS 2.4 %; EOSINOPHILS ABSOLUTE 0.25 10/3/uL (0.0-0.53); HEMATOCRIT 39.3 % (40.0-51.0); HEMOGLOBIN 13.1 g/dL (13.6-17.8); LYMPHOCYTES 22.5 %; LYMPHOCYTES ABSOLUTE 2.32 10/3/uL (0.67-4.30); MANUAL DIFF NO %; MEAN CORPUS HGB CONC 33.3 g/dL (32.0-36.0); MEAN CORPUSCULAR HEMOGLOB 30.3 pg (26.0-34.0); MEAN CORPUSCULAR VOLUME 90.8 fL (80-100); MEAN PLATELET VOLUME 12.7 fL (9.2-13.0); MONOCYTES 9.2 %; MONOCYTES ABSOLUTE 0.95 10/3/uL (0.21-1.20); NEUTROPHILS 64.3 %; NEUTROPHILS ABSOLUTE 6.65 10/3/uL (2.02-8.40); PLATELET COUNT 127 10/3/uL (150-400); RBC DISTRIBUTION WIDTH 14.5 % (12.0-16.0); RED CELL COUNT 4.33 10/6/uL (4.7-6.1); WHITE BLOOD CELLS 10.3 10/3/uL (4.5-10.5)
[2016-10-22 05:36] LABS: INTERNATIONAL NORMAL RATI 1.2 UNITS (-); PROTIME (NOT ORD) 15.5 SEC (12.0-14.5)
[2016-10-22 05:48] LABS: BUN (BLOOD UREA NITROGEN) 31 MG/DL (6-23); CHLORIDE, SERUM 111 MMOL/L (96-112); CHOLESTEROL 126 MG/DL (< 200); CO2 (CARBON DIOXIDE) 26 MMOL/L (24-34); CREATININE 1.53 MG/DL (0.70-1.30); GFR AFRICAN AMERICAN 48 ML/MIN (>=60); GFR NON AFRICAN AMERICAN 41 ML/MIN (>=60); GLUCOSE, SERUM 106 MG/DL (60-99); HDL CHOLESTEROL 64 MG/DL (> 39); LDL CHOLESTEROL 49 MG/DL (< 130); NON-HDL CHOLESTEROL 62 MG/DL (< 160); PARTIAL THROMBO TIME > 150.0 SEC (22.5-37.2); POTASSIUM, SERUM 3.7 MMOL/L (3.5-5.3); SODIUM, SERUM 140 MMOL/L (135-148); TRIGLYCERIDE 66 MG/DL (< 150)
[2016-10-23 05:56] LABS: CHLORIDE, SERUM 106 MMOL/L (96-112); CREATININE 1.64 MG/DL (0.70-1.30); GFR AFRICAN AMERICAN 44 ML/MIN (>=60); GFR NON AFRICAN AMERICAN 38 ML/MIN (>=60); GLUCOSE, SERUM 98 MG/DL (60-99); POTASSIUM, SERUM 3.8 MMOL/L (3.5-5.3); SODIUM, SERUM 142 MMOL/L (135-148)
[2016-10-23 05:58] LABS: BUN (BLOOD UREA NITROGEN) 27 MG/DL (6-23); CO2 (CARBON DIOXIDE) 31 MMOL/L (24-34)
[2016-10-23] MEDS ORDERED: CARDCD120 PO (09:57)
[2017-01-07] MEDS ORDERED: BUM1 PO (00:36)
[2017-01-07] MEDS ORDERED: CELEXA10 PO (00:37)
[2017-01-07] MEDS ORDERED: DUREZOL (00:39)
[2017-01-07] MEDS ORDERED: AMOXIL500C PO (00:43)
[2017-01-07] MEDS ORDERED: TUSSIN PO (00:44)
[2017-01-07] MEDS ORDERED: BEN25 PO (00:45)
[2017-01-11] MEDS ORDERED: DEMA10T PO (15:24)
[2017-01-11] MEDS ORDERED: KLOR-CON M2020 MEQ PO (15:25)
[2017-01-11] MEDS ORDERED: BUM1 PO (16:19)
[2017-01-11] MEDS ORDERED: BUM2 PO (16:19)
[2017-02-20] MEDS ORDERED: BUM2 PO (10:32)
[2017-02-20] MEDS ORDERED: KLOR-CON M2020 MEQ PO (10:39)
[2017-02-20] MEDS ORDERED: PLAVIX PO (10:40)
[2017-02-20] MEDS ORDERED: LIPITOR80 MG PO (10:40)
[2017-02-20] MEDS ORDERED: TAZTIA X3 PO (10:41)
[2017-02-20] MEDS ORDERED: TOPXL100 PO (10:44)
[2017-02-20] MEDS ORDERED: NITROSTAT0.4 MG SL (10:45)
[2017-02-20] MEDS ORDERED: [UNRECOGNIZED DRUG - OTHER] PO (10:46)
[2017-02-20] MEDS ORDERED: PEP20 PO (10:46)
[2017-02-20] MEDS ORDERED: CO Q-10100 MG PO (10:48)
[2017-02-20] MEDS ORDERED: AMOXIL500 MG PO (10:48)
[2017-02-20] MEDS ORDERED: ELIQUIS 2.5 MG2.5 MG PO (10:57)
== END 2016-10-23 11:01 | disposition home or self-care (01) | DRG 682 ==
LOC: ER 03:24 → 5NO 04:06 → SDC/OF 14:21 → 5NO 14:28
PROVIDERS: Internal Medicine; Internal Medicine Cardiovascular Disease; Internal Medicine Pulmonary Disease; Nurse Practitioner Family; Specialist
DX: N17.9 Acute kidney failure, unspecified (principal); I50.23 Acute on chronic systolic (congestive) heart failure; J96.01 Acute respiratory failure with hypoxia; J90 Pleural effusion, not elsewhere classified; I13.0 Hypertensive heart and chronic kidney disease with heart failure and stage 1 through stage 4 chronic kidney disease, or unspecified chronic kidney disease; I48.92 Unspecified atrial flutter; I48.91 Unspecified atrial fibrillation; I25.10 Atherosclerotic heart disease of native coronary artery without angina pectoris; Z95.1 Presence of aortocoronary bypass graft; Z95.2 Presence of prosthetic heart valve; J44.9 Chronic obstructive pulmonary disease, unspecified; Z87.891 Personal history of nicotine dependence; Z85.46 Personal history of malignant neoplasm of prostate; Z79.01 Long term (current) use of anticoagulants; E87.6 Hypokalemia; N18.3 Chronic kidney disease, stage 3 (moderate)
CPT/HCPCS: 36600; 71010; 71020; 76775; 78452; 80048; 80061; 80069; 80076; 81001; 82550; 82553; 82805; 82962; 83036; 83605; 83735; 83880; 84100; 84132; 84145; 84443; 84484; 85025; 85610; 85730; 87040; 93005; 93017; 93306; 94640; 94660; 96374; 96375; 99285; A9270-GY; A9502; J0280; J0610; J2785; J3370

== ENCOUNTER 2016-11-05 09:04 | Inpatient (IN) | payer MEDICARE, OTHER ==
--- NOTE | ~2016-11-05 | HP ---
History And Physical [address] [address] NAME: PAIGE CHAVEZ : 32 STATUS : ADM IN PAT#: [id number] AGE: 86 ADM/REG DATE : 11/05/16 MR#: [id number] REPORT SERV DATE: 11/05/16 DICTATED BY: MASON JAMES DATE: 11/05/16 REPORT STATUS : Draft TRANSCRIBED BY: MODL DATE: 11/05/16 DATE OF ADMISSION: 11/05/2016 REASON FOR ADMISSION: Progressive congestive heart failure and pleural effusions. HISTORY OF PRESENT ILLNESS: This is an 86-year-old white male, who was just discharged from the hospital by Dr. Geni [place] on 10/23/2016. He had two to three days of feeling fairly well; however, since that time, he has had increasing shortness of breath.. He was to see Dr. Vincenzo Kirkland today at 1545 hours. He has not yet followed up with Dr. Mathew Corral, but has an appointment tomorrow. He presented to the emergency room with increasing shortness of breath. He is seen by Dr. Killian Márquez. Dr. Márquez requested admission to the hospital for straightening out of this situation. He was diagnosed with COPD by Dr. Derick Velasquez in the past by pulmonary function testing, though he has not smoked in about the last 50 years. He is followed now by Dr. Enrique Schneider. He says that his mitral valve is leaking some now, and he is having the need for more diuretic. He was discharged with Lasix 20 mg p.o. daily, He was seen by Dr. Márquez earlier and started on IV Cardizem to control heart rate and has now the heart rate down to around 100 on the IV Cardizem. He was given Lasix 40 mg IV. His creatinine was 1.56. The patient is being admitted to the hospital for further adjustments in his diuretics to the limit of what his chronic renal disease will tolerate in consultation with Dr. Corral. The patient says he would have another operation with Dr. Corral to deem this necessary. The patient has been in atrial fibrillation since 2013 after a failed DC cardioversion. He is admitted for adjustments of medications and control of the pulmonary edema and pleural effusions. PAST MEDICAL HISTORY: Recently hospitalized with congestive heart failure. He has longstanding history of atrial fibrillation. He has known coronary artery disease status post CABG in 2009, mitral valve [place] [address] Guajardo. He does have a history of COPD with a history of smoking as very remote. HOME MEDICATIONS: Include the following: Acetaminophen 1000 mg p.o. three times a day, Lipitor 10 mg p.o. daily, Plavix 75 mg p.o. daily, coenzyme Q 100 mg p.o. daily, Valium 5 mg p.o. at bedtime as needed, diltiazem 120 mg CD daily, famotidine 20 mg p.o. twice daily p.r.n., Lasix 20 mg p.o. daily, metoprolol succinate 50 mg p.o. every morning, nitroglycerin 0.4 sublingually p.r.n., and Neosporin ointment as needed. History And Physical [address] [address] NAME: PAIGE CHAVEZ : 32 STATUS : ADM IN [facility]#: [id number] AGE: 86 ADM/REG DATE : 11/05/16 MR#: [id number] REPORT SERV DATE: 11/05/16 DICTATED BY: MASON JAMES DATE: 11/05/16 REPORT STATUS : Draft TRANSCRIBED BY: DEQUAN DATE: 11/05/16 ALLERGIES: NONE ARE KNOWN. SOCIAL HISTORY: He is . Lives home with his . 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 He smoked cigarettes until 1965, about 15 years ago. He did not smoke since that time. He takes occasional drink. No recreational drugs. 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 FAMILY HISTORY: There are some high blood pressure and heart disease run in the family. REVIEW OF SYSTEMS: He has had no headache or eye pain. No double vision, nausea, vomiting, or diarrhea. No fits, seizures, convulsions, melena, or hematemesis. He has increasing swelling of his legs. Usually, the left leg swells at the site of the saphenous vein, but both places have been swelling since the discharge from the hospital. He has had dyspnea with exertion. Some cough, but nonproductive. No fever, chills, night sweats, melena, hematemesis, fits, seizures, convulsions, unilateral weakness, nausea, vomiting, or diarrhea. The remainder of the review of systems is negative. PHYSICAL EXAMINATION: GENERAL: Elderly white male, in no acute distress. VITAL SIGNS: Blood pressure initially 147/74, with a heart rate of 130, respiratory rate 24, afebrile, and O2 saturations 83%. HEENT: EOMI. Sclerae clear. Conjunctivae pink. NECK: No bruit, he does have JVD at 30 degrees. CHEST: Clear with dullness to percussion at both bases. HEART: Irregularly irregular, rapid. No rhonchi, mitral regurgitation murmur ascertained at this rate. ABDOMEN: Soft and nontender. Protuberant. Bowel sounds are positive. EXTREMITIES: Have 4+ pitting edema on the right side, 3+ on the left side. Distal pulses are intact, dorsalis pedis and posterior tibial. SKIN: Stasis changes in the lower extremities bilaterally. NEUROLOGIC: The patient withdraws to plantar stimulation. Skein Dyer is equal and symmetric bilaterally. Coordination is intact. No tremor. He is symmetric and equal neurologically bilaterally. His respiratory rate is elevated. The patient appears dyspneic. LABORATORY DATA: The BNP was 495.7. His sodium 135, potassium 4.7, creatinine 1.56, and BUN is 28. Albumin was 3.8, indirect bilirubin 1.8, with alk phosphatase of 125, and AST 4.5. Troponin 0.005. Hemoglobin 13.7, hematocrit 40.4, white count 12.7, and platelets 139,000. INR 1.3. Portable chest x-ray shows worsening volume overload with congestive heart failure patterns with pleural effusion, increasing bilaterally the basilar areas. ASSESSMENT: 1. Mitral regurgitation, may be mechanical problem with worsening pleural effusions and History And Physical [address] [address] NAME: PAIGE CHAVEZ : 32 STATUS : ADM IN PAT#: [id number] AGE: 86 ADM/REG DATE : 11/05/16 MR#: [id number] REPORT SERV DATE: 11/05/16 DICTATED BY: MASON JAMES DATE: 11/05/16 REPORT STATUS : Draft TRANSCRIBED BY: MODL DATE: 11/05/16 distal edema from the mitral regurgitation. We will consult Dr. Corral to help assess with increased diuretic therapy or replacement of the valve might be a consideration, though at his age, this was thought to be a poor second level of choice because of the risk. 2. Atrial fibrillation, rapid ventricular response. DC cardioversion failure in 2013, has been chronic since that time. The patient has been on Eliquis by his list. 3. Chronic obstructive pulmonary disease. 4. Remote history of cigarette use. He has been under the care of Dr. Schneider most recently. 5. Bilateral pleural effusions, increasing. 6. Status post CABG in 2008 for atherosclerotic cardiovascular disease and mitral valve placed at that time as well. 7. History of gastroesophageal reflux disease. PLAN: I am going to go ahead and increase the diuretics, start with IV Lasix initially and see if we get response. I will discontinue the IV Cardizem drip once the oral medications given this morning and consult Dr. Corral for further recommendations. DB/MODL Mason James M.D. / [id number] CC: Mason Portillo M.D. Vincenzo Kirkland M.D. Fernando Starr IV, III, M.D., [facility], [facility] Soham Velasquez M.D. Arturo Moreno M.D. Geni [place] M.D.
--- NOTE | ~2016-11-05 | IDS ---
Interim Discharge Summary [facility] [address] [place]. [address] NAME: PAIGE CHAVEZ : 32 STATUS : ADM IN PAT#: [id number] AGE: 86 ADM/REG DATE : 11/05/16 MR#: [id number] REPORT SERV DATE: 11/10/16 DICTATED BY: RICARDA WOLFE DATE: 11/10/16 REPORT STATUS : Draft TRANSCRIBED BY: MODHoda DATE: 11/10/16 ADMISSION DATE: 11/05/2016 DISCHARGE DATE: DIAGNOSES: 1. Acute on chronic fluid overload with bilateral pleural effusions. 2. Diastolic dysfunction. 3. Hypoxia. 4. Acute on chronic kidney disease. 5. Acute on chronic leukocytosis. 6. Chronic atrial fibrillation. PROCEDURES: Thoracentesis of the left pleura with 2.5 L removed. CONSULTANTS: Cardiology with Dr. Corral and Nephrology with Dr. Chew and Dr. Moreno. HOSPITALIST: Dr. Kendell Acevedo and Dr. Wolfe. HOSPITAL COURSE: This is an 86 years old male with a past medical history of diastolic dysfunction and chronic atrial fibrillation, recently discharged from the hospital in October of 2016, who follows up with Dr. Corral, property management bookkeeper, presented with worsening shortness of breath and dyspnea on exertion. He was admitted to agency sales representative with a cardiology consultation with Dr. Jordan Corral. The patient required supplemental oxygen for acute hypoxic respiratory failure. The patient was placed on diuretics for diuresing, however, began to develop some acute on chronic kidney disease, therefore Nephrology was consulted and they have changed him on his diuretic to torsemide due to his intravascular depletion but still was for fluid overload with bilateral effusions and edema. The patient verbally consented for thoracentesis which was performed by Dr. De La Paz with Interventional Radiology with removal of 2.5 L from the left side. The patient's shortness of breath and tachypnea improved as of today. The patient is now on room air and states that he does not have dyspnea on exertion or shortness of breath at rest. He continues on torsemide with good urine output. The plan is for thoracentesis of the right side on Saturday. The patient's previous chest x-ray still with a large right pleural effusion; however, we will repeat a chest x-ray in the morning to ascertain if the patient still requires a right thoracentesis for Saturday. The patient will be followed by Dr. Kendell Portillo who will attend to this patient's care. [facility]/DEQUAN Ricarda Wolfe M.D. / [id number] Interim Discharge Summary [address] [address] NAME: PAIGE CHAVEZ : 32 STATUS : ADM IN PAT#: [id number] AGE: 86 ADM/REG DATE : 11/05/16 MR#: [id number] REPORT SERV DATE: 11/10/16 DICTATED BY: RICARDA WOLFE DATE: 11/10/16 REPORT STATUS : Draft TRANSCRIBED BY: DEQUAN DATE: 11/10/16 CC: Fernando Rodriguez M.D.
--- NOTE | ~2016-11-05 | DS ---
Discharge Summary [address] [place]. [address] NAME: PAIGE CHAVEZ : 32 STATUS : DIS IN PAT#: [id number] AGE: 86 ADM/REG DATE : 11/05/16 MR#: [id number] REPORT SERV DATE: 11/14/16 DICTATED BY: MASON PORTILLO DATE: 11/13/16 REPORT STATUS : Draft TRANSCRIBED BY: MODL DATE: 11/13/16 ADMISSION DATE: 11/05/2016 DISCHARGE DATE: 11/13/2016 DISCHARGE DIAGNOSES: 1. Acute hypoxemic respiratory failure. 2. Volume overload. 3. Diastolic dysfunction. 4. Right ventricular systolic dysfunction. 5. Chronic atrial fibrillation/flutter. 6. Bioprosthetic aortic valve replacement 2008 with [id number] aortic regurgitation. 7. Acute kidney injury. 8. Chronic kidney disease, 3. 9. Coronary artery disease, status post coronary artery bypass grafting 2008. 10.Nonsustained ventricular tachycardia. 11.Chronic obstructive pulmonary disease. 12.Bilateral pleural effusions, status post thoracentesis by Interventional Radiology, left on 11/08/2016, 2500 mL removed; right on 11/12/2016, 750 mL removed. 13.Acute anemia. 14.Acute thrombocytosis. 15.Prostate cancer, treated. 16.Chronically elevated alkaline phosphatase and AST. OPERATION/PROCEDURES: See above. PRESENT ILLNESS: This is an 86-year-old white male who was triaged in the emergency room on 11/05/2016 at 0731 hours complaining of shortness of breath. Admission vital signs; blood pressure 146/74, temp 97.2, pulse 130, respirations 20, O2 sat 83% on room air. His evaluation in the emergency room included a chest x-ray which demonstrated volume overload. He was referred to the Hospitalist Service. He was seen by Dr. Mason Acevedo and admitted as described on admission history and physical examination. Additional history included a hospitalization here 10/18/2016 to 10/23/2016 also with acute hypoxemic respiratory failure from fluid overload associated with acute on chronic kidney disease. At that time, there was some concern that his atrial fibrillation rate was not adequately controlled and Cardizem was added to his baseline beta-bi. ADDITIONAL HISTORY: Per Dr. Acevedo. PHYSICAL EXAMINATION: Per Dr. Acevedo. ADMISSION LABORATORY: Per Dr. Acevedo. Discharge Summary [facility] [address] [place]. [address] NAME: PAIGE CHAVEZ : 32 STATUS : DIS IN PAT#: [id number] AGE: 86 ADM/REG DATE : 11/05/16 MR#: [id number] REPORT SERV DATE: 11/14/16 DICTATED BY: MASON PORTILLO DATE: 11/13/16 REPORT STATUS : Draft TRANSCRIBED BY: MODL DATE: 11/13/16 HOSPITAL COURSE: He was admitted to [address] [place] [address] Acevedo with: 1. Volume overload. 2. Atrial fibrillation with rapid ventricular response. 3. All occurring in the setting of the above-mentioned comorbidities. In the emergency room, he was started on a Cardizem drip. He was given additional diuretic therapy. Cardiology consultation was obtained with Dr. Jordan Corral. His hospitalist care was assumed by Dr. Nelson. His hospital course from admission through 11/10/2016 is as outlined on interim summary dictated by Dr. Nelson. His hospital course was assumed by the undersigned on 11/11/2016. He was seen through discharge. When initially seen on 11/11/2016, he was symptomatically improved with a weight loss of approximately 9 kg. His room air sat was 92%. His atrial fibrillation rate was better controlled on p.o. Cardizem and metoprolol at higher doses. His diuresis was being sustained with b.i.d. torsemide. Dr. Corral felt that he should also have a right thoracentesis to complement his left. This was done uneventfully on 11/12/2016 with removal of 750 mL. On 11/13/2016, he felt well with no chest pain or dyspnea. His room air sat was 95%. He was having some sustained atrial flutter at a rate of 137. He was seen again by Dr. Corral. Dr. Corral and I both had concerns that he might be having some sustained atrial flutter as an outpatient contributing to his volume overload. His rate subsequently dropped back below 100 and remained below 100. At this point, it was felt he could be safely discharged home with close outpatient followup to be described below. Discharge BMP: Sodium 144, potassium 4, chloride 104, CO2 of 31, BUN 43, creatinine 2.04, glucose 189 (PC), calcium 9.4, magnesium 2.3. CBC: White count 11.1, hemoglobin 12.6, platelets 160,000. He will be seen by Dr. Kirkland in one week. He will follow up with Dr. Corral as scheduled. DISCHARGE MEDICATIONS: Pending outpatient followup: Eliquis 2.5 mg twice daily; Lipitor 80 mg at bedtime; Plavix 75 mg daily; CoQ10, 100 mg daily; Cardizem 360 mg CD daily; Toprol-XL 100 mg daily; Valium 5 mg at bedtime as needed; Pepcid 20 mg twice daily as needed; Tylenol 1000 mg three times daily as needed; Demadex 20 mg daily; Neosporin ointment as needed; nitroglycerin sublingually as needed. Discharge time greater than 30 minutes. Discharge Summary [address] [place]. [address] NAME: PAIGE CHAVEZ : 32 STATUS : DIS IN PAT#: [id number] AGE: 86 ADM/REG DATE : 11/05/16 MR#: [id number] REPORT SERV DATE: 11/14/16 DICTATED BY: MASON PORTILLO DATE: 11/13/16 REPORT STATUS : Draft TRANSCRIBED BY: DEQUAN DATE: 11/13/16 DICTATED BY: Mason Portillo M.D. DD/DEQUAN Mason Portillo M.D. / [id number] CC: Fernando Barajas M.D. Leonard Hays III, M.D., [facility], [facility]
--- NOTE | ~2016-11-05 | CN ---
Consultation Report [facility] [address] [place]. [address] NAME: PAIGE CHAVEZ : 34 STATUS : ADM IN [facility]#: [id number] AGE: 86 ADM/REG DATE : 11/05/16 MR#: [id number] REPORT SERV DATE: 11/08/16 DICTATED BY: MITESH CORONEL DATE: 11/07/16 REPORT STATUS : Draft TRANSCRIBED BY: MODL DATE: 11/07/[address] CORRAL. DATE OF CONSULTATION: REASON FOR CONSULTATION: Acute on chronic kidney disease. HISTORY OF PRESENT ILLNESS: Mr. Winters is very active 86-year-old white male who enjoys running, but has been unable to in the last two months due to progressive dyspnea. He has history of aortic valve replacement with Dr. Sanchez in 2008, atrial fibrillation fairly controlled on medicines and he follows with Dr. Corral routinely. He has been unaware of kidney disease in the past, but was admitted towards the end of October with increasing shortness of breath that was not improved with Lasix 20 mg daily, which had been started by his PCP, Dr. Kirkland in the past month. He denies a significant urinary response to Lasix and has been eating out more often recently after his 's broken hip. His admission creatinine was 2.3 with a weight of 92 kg with diuresis on Demadex 20 mg daily and his weight fell to 87.8 kilos and his creatinine improved to 1.6. On discharge from [facility] on 10/23/2016 he was sent home with Lasix 20 mg daily and again failed to notice significant urinary response. On presentation, he had worsened edema and a creatinine of 1.5 and weight is back up to 92 kg. He was given IV Lasix, but creatinine worsened to 2.5. His I's and O's and weights have not been well recorded, but BNP is slightly lower. Likewise, his sodium has fallen from 135 to 132 and he does not feel significantly better. Recent studies, negative nuclear stress test, CLAU with EF of 55% and renal ultrasound with more shrunken kidneys and increased echogenicity, but no hydronephrosis. He denies NSAID use at home. PAST MEDICAL HISTORY: Coronary artery disease, status post bypass, 2008; aortic disease, status post valve replacement in 2008; atrial fibrillation; diastolic heart failure; COPD. FAMILY HISTORY: Negative for renal disease. SOCIAL HISTORY: Quit smoking in 60's. 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 MEDICATIONS: His discharge medications from [facility] included Tylenol, Lipitor, Plavix, coenzyme Q10, diazepam, diltiazem, Pepcid, Lasix 20 mg daily, Toprol 50 mg daily, nitroglycerine. ALLERGIES: HE HAS NO KNOWN DRUG ALLERGIES. REVIEW OF SYSTEMS: See HPI. Otherwise reviewed in detail and negative. PHYSICAL EXAMINATION: Consultation Report [facility] [address] [place]. [address] NAME: PAIGE CHAVEZ : 34 STATUS : ADM IN PAT#: [id number] AGE: 86 ADM/REG DATE : 11/05/16 MR#: [id number] REPORT SERV DATE: 11/08/16 DICTATED BY: MITESH CORONEL DATE: 11/07/16 REPORT STATUS : Draft TRANSCRIBED BY: DEQUAN DATE: 11/07/16 VITAL SIGNS: O2 sat 90%, blood pressure 148/67, temperature is 37, pulse is 63, respirations of . Weight, again from admission, 92.5 kilos. GENERAL: He is a very pleasant, conversant white male, no acute distress. HEENT: Sclerae anicteric. Mucous membranes fairly moist. NECK: He has elevated JVD. LUNGS: He has bilateral rales, left greater than right with diminished breath sounds in the left. HEART: He has a S4 gallop with a prominent S2, and no definite murmurs. ABDOMEN: Soft, nontender. No hepatosplenomegaly. He has 1+ peripheral edema. SKIN: No noted rash. No Carias catheter. LABORATORY DATA: Chest x-ray shows pulmonary edema and pleural effusion. ASSESSMENT AND PLAN: Acute kidney injury, suspect cardiorenal syndrome due to inadequate diuresis and high salt diet. Note that his creatinine did rise on IV Lasix, but his I's and O's and weights are not recorded and his volume status compared to admission is unclear. He had a similar patter during his last admission and given his good response to torsemide 20 mg daily, I will resume this dose in the morning and so also check a bladder scan to rule out any new urinary retention, I would not repeat the renal ultrasound as yet given that his renal ultrasound was only a few weeks ago. I think strict attention to in's and out's and daily weights would help significantly in his volume management and assuming that his hospital course proceeds as it did last time, I think that the discharge diuretic plan will need a higher dose of loop diuretic. I have also counselled him on the importance for low sodium diet and we will order nutrition consult to enforce this. Thank you very much for this consult. Partners to follow. RELL/DEQUAN Mitesh Coronel MD / [id number] CC: Fernando Rodriguez M.D.
[2016-11-05 08:44] LABS: BASOPHILS 0.2 %; BASOPHILS ABSOLUTE 0.03 10/3/uL (0.0-0.16); EOSINOPHILS 0.2 %; EOSINOPHILS ABSOLUTE 0.02 10/3/uL (0.0-0.53); HEMATOCRIT 40.4 % (40.0-51.0); HEMOGLOBIN 13.7 g/dL (13.6-17.8); IMMATURE GRANULOCYTES 0.2 %; IMMATURE GRANULOCYTES ABSOLUTE 0.03 10/3/uL (0.0-0.11); LYMPHOCYTES 4.4 %; LYMPHOCYTES ABSOLUTE 0.54 10/3/uL (0.67-4.30); MEAN CORPUS HGB CONC 33.9 g/dL (32.0-36.0); MEAN CORPUSCULAR HEMOGLOB 31.1 pg (26.0-34.0); MEAN CORPUSCULAR VOLUME 91.6 fL (80-100); MONOCYTES 3.4 %; MONOCYTES ABSOLUTE 0.42 10/3/uL (0.21-1.20); NEUTROPHILS 91.6 %; NEUTROPHILS ABSOLUTE 11.19 10/3/uL (2.02-8.40); PLATELET COUNT 139 10/3/uL (150-400); RED CELL COUNT 4.41 10/6/uL (4.7-6.1); WHITE BLOOD CELLS 12.2 10/3/uL (4.5-10.5)
[2016-11-05 08:45] LABS: ER CBC TAT 0 Hrs 04 MinsNP; MANUAL DIFF NO %
[2016-11-05 08:51] LABS: INTERNATIONAL NORMAL RATI 1.3 UNITS (-); PARTIAL THROMBO TIME 28.5 SEC (22.5-37.2); PROTIME (NOT ORD) 15.9 SEC (12.0-14.5)
[2016-11-05 08:59] LABS: BUN (BLOOD UREA NITROGEN) 28 MG/DL (6-23); CALCIUM, SERUM 9.1 MG/DL (8.5-10.4); CHLORIDE, SERUM 101 MMOL/L (96-112); CO2 (CARBON DIOXIDE) 30 MMOL/L (24-34); CREATININE 1.56 MG/DL (0.70-1.30); GFR AFRICAN AMERICAN 47 ML/MIN (>=60); GFR NON AFRICAN AMERICAN 40 ML/MIN (>=60); GLUCOSE, SERUM 117 MG/DL (60-99)
[2016-11-05 09:00] LABS: CHEST PAIN PROFILE TAT 0 Hrs 20 Mins; POTASSIUM, SERUM 4.7 MMOL/L (3.5-5.3); SODIUM, SERUM 135 MMOL/L (135-148); TROPONIN I 0.05 NG/ML (<0.05)
[~2016-11-05 09:04] MED LIST changes: +ANOROELLIPTA INH; +CARDCD120 PO; +CO Q-10100 MG PO; +DUREZOL OPH; +L20 PO
[2016-11-05] MEDS ORDERED: CARTIA XT120 MG/24 PO (09:15)
[2016-11-05] MEDS ORDERED: V5 PO (09:16)
[2016-11-05 09:17] LABS: ALBUMIN 3.8 G/DL (3.5-5.0); ALKALINE PHOSPHATASE 125 U/L (45-117); DIRECT BILIRUBIN 0.2 MG/DL (0.0-0.4); SGOT(AST) 47 U/L (5-40); SGPT(ALT) 39 U/L (5-65); TOTAL BILIRUBIN 1.2 MG/DL (0-1.2); TOTAL PROTEIN 7.4 G/DL (6.0-8.5)
[2016-11-05] MEDS ORDERED: L20 PO (09:17)
[2016-11-05] MEDS ORDERED: LIPITOR80 MG PO (09:18)
[2016-11-05] MEDS ORDERED: PLAVIX PO (09:19)
[2016-11-05] MEDS ORDERED: TOPXL50 PO (09:19)
[2016-11-05] MEDS ORDERED: PEP20 PO (09:20)
[2016-11-05] MEDS ORDERED: ACET500CAP PO (09:21)
[2016-11-05] MEDS ORDERED: NEO-OINT15 TOP (09:23)
[2016-11-05] MEDS ORDERED: CO Q-10100 MG PO (09:23)
[2016-11-05] MEDS ORDERED: NITROSTAT0.4 MG SL (09:25)
[2016-11-05] MEDS ORDERED: ELIQUIS 2.5 MG2.5 MG PO (10:54)
[2016-11-05 13:18] LABS: PHOSPHORUS, SERUM 3.6 MG/DL (2.5-4.5)
[2016-11-06 05:14] LABS: BASOPHILS 0 %; EOSINOPHILS 0 %; HEMATOCRIT 38.1 % (40.0-51.0); HEMOGLOBIN 12.6 g/dL (13.6-17.8); IMMATURE GRANULOCYTES 0.3 %; IMMATURE GRANULOCYTES ABSOLUTE 0.05 10/3/uL (0.0-0.11); LYMPHOCYTES ABSOLUTE 0.78 10/3/uL (0.67-4.30); MEAN CORPUS HGB CONC 33.1 g/dL (32.0-36.0); MEAN CORPUSCULAR HEMOGLOB 30.6 pg (26.0-34.0); MEAN CORPUSCULAR VOLUME 92.5 fL (80-100); MEAN PLATELET VOLUME 12.8 fL (9.2-13.0); MONOCYTES 6.1 %; MONOCYTES ABSOLUTE 0.96 10/3/uL (0.21-1.20); NEUTROPHILS 88.6 %; NEUTROPHILS ABSOLUTE 13.91 10/3/uL (2.02-8.40); PLATELET COUNT 148 10/3/uL (150-400); RED CELL COUNT 4.12 10/6/uL (4.7-6.1); WHITE BLOOD CELLS 15.7 10/3/uL (4.5-10.5)
[2016-11-06 05:16] LABS: MANUAL DIFF NO %
[2016-11-06 05:17] LABS: BUN (BLOOD UREA NITROGEN) 36 MG/DL (6-23); CHLORIDE, SERUM 98 MMOL/L (96-112); CO2 (CARBON DIOXIDE) 29 MMOL/L (24-34); CREATININE 2.05 MG/DL (0.70-1.30); GFR AFRICAN AMERICAN 33 ML/MIN (>=60); GFR NON AFRICAN AMERICAN 29 ML/MIN (>=60); GLUCOSE, SERUM 123 MG/DL (60-99); POTASSIUM, SERUM 5.4 MMOL/L (3.5-5.3); SODIUM, SERUM 132 MMOL/L (135-148)
[2016-11-06 14:42] LABS: ASCORBIC ACID (UR NOT ORDER) NEG (NEG); BILIRUBIN, URINE NEGATIVE (NEG); KETONE, URINE NEGATIVE (NEG); LEUKOCYTE ESTERASE(NOT OR NEG (NEG); WBC (NOT ORDERED) (RFLEX) 1 (0-5)
[2016-11-07 05:59] LABS: BASOPHILS 0.2 %; BASOPHILS ABSOLUTE 0.03 10/3/uL (0.0-0.16); EOSINOPHILS 0.6 %; EOSINOPHILS ABSOLUTE 0.09 10/3/uL (0.0-0.53); HEMATOCRIT 38.9 % (40.0-51.0); HEMOGLOBIN 12.7 g/dL (13.6-17.8); IMMATURE GRANULOCYTES 0.3 %; IMMATURE GRANULOCYTES ABSOLUTE 0.04 10/3/uL (0.0-0.11); LYMPHOCYTES ABSOLUTE 1.21 10/3/uL (0.67-4.30); MANUAL DIFF NO %; MEAN CORPUS HGB CONC 32.6 g/dL (32.0-36.0); MEAN CORPUSCULAR HEMOGLOB 30.5 pg (26.0-34.0); MEAN CORPUSCULAR VOLUME 93.5 fL (80-100); MEAN PLATELET VOLUME 12.5 fL (9.2-13.0); MONOCYTES 9.3 %; NEUTROPHILS 81.6 %; NEUTROPHILS ABSOLUTE 12.31 10/3/uL (2.02-8.40); PLATELET COUNT 146 10/3/uL (150-400); RBC DISTRIBUTION WIDTH 14.2 % (12.0-16.0); RED CELL COUNT 4.16 10/6/uL (4.7-6.1); WHITE BLOOD CELLS 15.1 10/3/uL (4.5-10.5)
[2016-11-07 06:20] LABS: ALBUMIN 3.6 G/DL (3.5-5.0); CALCIUM, SERUM 9.1 MG/DL (8.5-10.4); CHLORIDE, SERUM 98 MMOL/L (96-112); CO2 (CARBON DIOXIDE) 30 MMOL/L (24-34); CREATININE 2.49 MG/DL (0.70-1.30); GFR AFRICAN AMERICAN 26 ML/MIN (>=60); GFR NON AFRICAN AMERICAN 23 ML/MIN (>=60); POTASSIUM, SERUM 4.7 MMOL/L (3.5-5.3); SODIUM, SERUM 132 MMOL/L (135-148)
[2016-11-07 06:21] LABS: BUN (BLOOD UREA NITROGEN) 52 MG/DL (6-23); GLUCOSE, SERUM 95 MG/DL (60-99)
[2016-11-08 04:26] LABS: BASOPHILS 0.4 %; BASOPHILS ABSOLUTE 0.06 10/3/uL (0.0-0.16); EOSINOPHILS ABSOLUTE 0.14 10/3/uL (0.0-0.53); HEMATOCRIT 39.4 % (40.0-51.0); HEMOGLOBIN 13.1 g/dL (13.6-17.8); IMMATURE GRANULOCYTES 0.6 %; IMMATURE GRANULOCYTES ABSOLUTE 0.08 10/3/uL (0.0-0.11); LYMPHOCYTES 8.4 %; LYMPHOCYTES ABSOLUTE 1.14 10/3/uL (0.67-4.30); MEAN CORPUS HGB CONC 33.2 g/dL (32.0-36.0); MEAN CORPUSCULAR HEMOGLOB 30.8 pg (26.0-34.0); MEAN CORPUSCULAR VOLUME 92.7 fL (80-100); MEAN PLATELET VOLUME 12.5 fL (9.2-13.0); MONOCYTES 9.7 %; MONOCYTES ABSOLUTE 1.32 10/3/uL (0.21-1.20); NEUTROPHILS 79.9 %; PLATELET COUNT 139 10/3/uL (150-400); RBC DISTRIBUTION WIDTH 14.3 % (12.0-16.0); RED CELL COUNT 4.25 10/6/uL (4.7-6.1); WHITE BLOOD CELLS 13.5 10/3/uL (4.5-10.5)
[2016-11-08 04:27] LABS: MANUAL DIFF NO %
[2016-11-08 04:48] LABS: BUN (BLOOD UREA NITROGEN) 54 MG/DL (6-23); CALCIUM, SERUM 9.2 MG/DL (8.5-10.4); CHLORIDE, SERUM 100 MMOL/L (96-112); CO2 (CARBON DIOXIDE) 27 MMOL/L (24-34); GFR AFRICAN AMERICAN 33 ML/MIN (>=60); GFR NON AFRICAN AMERICAN 28 ML/MIN (>=60); POTASSIUM, SERUM 4.4 MMOL/L (3.5-5.3); SODIUM, SERUM 136 MMOL/L (135-148)
[2016-11-08 04:53] LABS: GLUCOSE, SERUM 115 MG/DL (60-99)
[2016-11-08 13:48] LABS: INTERNATIONAL NORMAL RATI 1.2 UNITS (-); PROTIME (NOT ORD) 14.9 SEC (12.0-14.5)
[2016-11-08 15:51] LABS: LDH BODY FLUID (NOT ORD) 109 U/L; PROTEIN BODY FLUID 1.5 G/DL
[2016-11-08 15:52] LABS: BODY FLUID CHOLESTEROL < 50 MG/DL
[2016-11-08 16:05] LABS: BF TOTAL CELL CT (NOT ORD 814 /MM3; BODY FLUID RBC (NOT ORD) 5898 /MM3
[2016-11-08 16:12] LABS: BD FL LYMPH (NOT ORD) 74 %; BD FL SOURCE (NOT ORD) LT THORACENTESIS; BF BASO (NOT OF) 0 %; BF LARGE MONONUCLEAR 20 %; BODY FLUID EOS (NOT ORD) 0 %; BODY FLUID SEG (NOT ORD) 6 %
[2016-11-09 04:51] LABS: BASOPHILS 0.3 %; BASOPHILS ABSOLUTE 0.03 10/3/uL (0.0-0.16); EOSINOPHILS 0.6 %; EOSINOPHILS ABSOLUTE 0.06 10/3/uL (0.0-0.53); HEMATOCRIT 38.6 % (40.0-51.0); HEMOGLOBIN 12.7 g/dL (13.6-17.8); IMMATURE GRANULOCYTES 0.5 %; IMMATURE GRANULOCYTES ABSOLUTE 0.05 10/3/uL (0.0-0.11); LYMPHOCYTES 12.2 %; LYMPHOCYTES ABSOLUTE 1.33 10/3/uL (0.67-4.30); MEAN CORPUS HGB CONC 32.9 g/dL (32.0-36.0); MEAN CORPUSCULAR HEMOGLOB 30.2 pg (26.0-34.0); MEAN CORPUSCULAR VOLUME 91.7 fL (80-100); MEAN PLATELET VOLUME 12.9 fL (9.2-13.0); MONOCYTES 9.4 %; MONOCYTES ABSOLUTE 1.02 10/3/uL (0.21-1.20); PLATELET COUNT 142 10/3/uL (150-400); RBC DISTRIBUTION WIDTH 14.3 % (12.0-16.0); RED CELL COUNT 4.21 10/6/uL (4.7-6.1); WHITE BLOOD CELLS 10.9 10/3/uL (4.5-10.5)
[2016-11-09 04:53] LABS: INTERNATIONAL NORMAL RATI 1.3 UNITS (-); PARTIAL THROMBO TIME 34.2 SEC (22.5-37.2); PROTIME (NOT ORD) 15.7 SEC (12.0-14.5)
[2016-11-09 04:54] LABS: MANUAL DIFF NO %
[2016-11-09 04:59] LABS: ALBUMIN 3.4 G/DL (3.5-5.0); CALCIUM, SERUM 9.1 MG/DL (8.5-10.4); CHLORIDE, SERUM 101 MMOL/L (96-112); CREATININE 2.14 MG/DL (0.70-1.30); GFR AFRICAN AMERICAN 32 ML/MIN (>=60); GFR NON AFRICAN AMERICAN 27 ML/MIN (>=60); GLUCOSE, SERUM 105 MG/DL (60-99); POTASSIUM, SERUM 3.8 MMOL/L (3.5-5.3); SODIUM, SERUM 140 MMOL/L (135-148)
[2016-11-09 05:03] LABS: BUN (BLOOD UREA NITROGEN) 47 MG/DL (6-23); CO2 (CARBON DIOXIDE) 32 MMOL/L (24-34)
[2016-11-09 12:03] LABS: TOTAL PROTEIN 6.7 G/DL (6.0-8.5)
[2016-11-10 04:51] LABS: ALBUMIN 3.2 G/DL (3.5-5.0); BUN (BLOOD UREA NITROGEN) 53 MG/DL (6-23); CALCIUM, SERUM 9.2 MG/DL (8.5-10.4); CHLORIDE, SERUM 101 MMOL/L (96-112); CO2 (CARBON DIOXIDE) 34 MMOL/L (24-34); GFR AFRICAN AMERICAN 31 ML/MIN (>=60); GFR NON AFRICAN AMERICAN 27 ML/MIN (>=60); GLUCOSE, SERUM 88 MG/DL (60-99); PHOSPHORUS, SERUM 3.3 MG/DL (2.5-4.5); POTASSIUM, SERUM 3.5 MMOL/L (3.5-5.3); SODIUM, SERUM 140 MMOL/L (135-148)
[2016-11-11 04:07] LABS: BASOPHILS 0.7 %; BASOPHILS ABSOLUTE 0.07 10/3/uL (0.0-0.16); EOSINOPHILS 3.1 %; HEMATOCRIT 36.7 % (40.0-51.0); IMMATURE GRANULOCYTES 0.8 %; IMMATURE GRANULOCYTES ABSOLUTE 0.08 10/3/uL (0.0-0.11); LYMPHOCYTES ABSOLUTE 1.92 10/3/uL (0.67-4.30); MEAN CORPUS HGB CONC 32.7 g/dL (32.0-36.0); MEAN CORPUSCULAR HEMOGLOB 29.9 pg (26.0-34.0); MEAN CORPUSCULAR VOLUME 91.5 fL (80-100); MEAN PLATELET VOLUME 12.7 fL (9.2-13.0); MONOCYTES 11.9 %; MONOCYTES ABSOLUTE 1.14 10/3/uL (0.21-1.20); NEUTROPHILS 63.5 %; NEUTROPHILS ABSOLUTE 6.07 10/3/uL (2.02-8.40); PLATELET COUNT 142 10/3/uL (150-400); RBC DISTRIBUTION WIDTH 14.3 % (12.0-16.0); RED CELL COUNT 4.01 10/6/uL (4.7-6.1); WHITE BLOOD CELLS 9.6 10/3/uL (4.5-10.5)
[2016-11-11 04:15] LABS: MANUAL DIFF NO %
[2016-11-11 04:17] LABS: ALBUMIN 3.1 G/DL (3.5-5.0); BUN (BLOOD UREA NITROGEN) 50 MG/DL (6-23); CALCIUM, SERUM 8.9 MG/DL (8.5-10.4); CHLORIDE, SERUM 104 MMOL/L (96-112); CO2 (CARBON DIOXIDE) 34 MMOL/L (24-34); CREATININE 2.11 MG/DL (0.70-1.30); GFR AFRICAN AMERICAN 32 ML/MIN (>=60); GFR NON AFRICAN AMERICAN 28 ML/MIN (>=60); PHOSPHORUS, SERUM 3.5 MG/DL (2.5-4.5); POTASSIUM, SERUM 3.2 MMOL/L (3.5-5.3); SODIUM, SERUM 143 MMOL/L (135-148)
[2016-11-11 04:18] LABS: GLUCOSE, SERUM 106 MG/DL (60-99)
[2016-11-12 06:20] LABS: BASOPHILS 0.7 %; BASOPHILS ABSOLUTE 0.07 10/3/uL (0.0-0.16); EOSINOPHILS 3.3 %; EOSINOPHILS ABSOLUTE 0.35 10/3/uL (0.0-0.53); HEMATOCRIT 36.6 % (40.0-51.0); HEMOGLOBIN 11.9 g/dL (13.6-17.8); IMMATURE GRANULOCYTES 0.7 %; IMMATURE GRANULOCYTES ABSOLUTE 0.07 10/3/uL (0.0-0.11); LYMPHOCYTES 16.6 %; LYMPHOCYTES ABSOLUTE 1.74 10/3/uL (0.67-4.30); MEAN CORPUS HGB CONC 32.5 g/dL (32.0-36.0); MEAN CORPUSCULAR HEMOGLOB 29.8 pg (26.0-34.0); MEAN CORPUSCULAR VOLUME 91.5 fL (80-100); MEAN PLATELET VOLUME 12.2 fL (9.2-13.0); MONOCYTES 11.2 %; MONOCYTES ABSOLUTE 1.18 10/3/uL (0.21-1.20); NEUTROPHILS 67.5 %; NEUTROPHILS ABSOLUTE 7.08 10/3/uL (2.02-8.40); PLATELET COUNT 152 10/3/uL (150-400); RBC DISTRIBUTION WIDTH 14.3 % (12.0-16.0); WHITE BLOOD CELLS 10.5 10/3/uL (4.5-10.5)
[2016-11-12 06:21] LABS: MANUAL DIFF NO %
[2016-11-12 06:37] LABS: ALBUMIN 3.1 G/DL (3.5-5.0); CALCIUM, SERUM 8.9 MG/DL (8.5-10.4); CHLORIDE, SERUM 105 MMOL/L (96-112); CO2 (CARBON DIOXIDE) 33 MMOL/L (24-34); CREATININE 1.91 MG/DL (0.70-1.30); GFR AFRICAN AMERICAN 36 ML/MIN (>=60); GFR NON AFRICAN AMERICAN 31 ML/MIN (>=60); GLUCOSE, SERUM 95 MG/DL (60-99); PHOSPHORUS, SERUM 3.2 MG/DL (2.5-4.5); POTASSIUM, SERUM 3.7 MMOL/L (3.5-5.3); SODIUM, SERUM 144 MMOL/L (135-148)
[2016-11-12 06:39] LABS: BUN (BLOOD UREA NITROGEN) 42 MG/DL (6-23)
[2016-11-12 10:52] LABS: PARTIAL THROMBO TIME 31.4 SEC (22.5-37.2)
[2016-11-12 10:54] LABS: INTERNATIONAL NORMAL RATI 1.2 UNITS (-); PROTIME (NOT ORD) 14.6 SEC (12.0-14.5)
[2016-11-13 09:23] LABS: BASOPHILS 0.4 %; BASOPHILS ABSOLUTE 0.04 10/3/uL (0.0-0.16); EOSINOPHILS 1.4 %; EOSINOPHILS ABSOLUTE 0.15 10/3/uL (0.0-0.53); HEMATOCRIT 39.2 % (40.0-51.0); HEMOGLOBIN 12.6 g/dL (13.6-17.8); IMMATURE GRANULOCYTES 0.5 %; IMMATURE GRANULOCYTES ABSOLUTE 0.06 10/3/uL (0.0-0.11); LYMPHOCYTES 8.9 %; LYMPHOCYTES ABSOLUTE 0.98 10/3/uL (0.67-4.30); MEAN CORPUS HGB CONC 32.1 g/dL (32.0-36.0); MEAN CORPUSCULAR HEMOGLOB 29.8 pg (26.0-34.0); MEAN CORPUSCULAR VOLUME 92.7 fL (80-100); MEAN PLATELET VOLUME 12.2 fL (9.2-13.0); MONOCYTES 6.4 %; MONOCYTES ABSOLUTE 0.71 10/3/uL (0.21-1.20); NEUTROPHILS 82.4 %; NEUTROPHILS ABSOLUTE 9.12 10/3/uL (2.02-8.40); PLATELET COUNT 160 10/3/uL (150-400); RBC DISTRIBUTION WIDTH 14.2 % (12.0-16.0); RED CELL COUNT 4.23 10/6/uL (4.7-6.1); WHITE BLOOD CELLS 11.1 10/3/uL (4.5-10.5)
[2016-11-13 09:26] LABS: MANUAL DIFF NO %
[2016-11-13 09:40] LABS: BUN (BLOOD UREA NITROGEN) 43 MG/DL (6-23); CALCIUM, SERUM 9.4 MG/DL (8.5-10.4); CHLORIDE, SERUM 104 MMOL/L (96-112); CO2 (CARBON DIOXIDE) 31 MMOL/L (24-34); CREATININE 2.04 MG/DL (0.70-1.30); GFR AFRICAN AMERICAN 34 ML/MIN (>=60); GFR NON AFRICAN AMERICAN 29 ML/MIN (>=60); SODIUM, SERUM 144 MMOL/L (135-148)
[2016-11-13 09:42] LABS: GLUCOSE, SERUM 189 MG/DL (60-99)
[2016-11-13] MEDS ORDERED: CARDCD360 PO (12:16)
[2016-11-13] MEDS ORDERED: TOPXL100 PO (12:17)
[2016-11-13] MEDS ORDERED: DEMA20 PO (12:19)
[2016-11-13] MEDS ORDERED: NTG150 SL (12:21)
[2017-01-07] MEDS ORDERED: BUM1 PO (00:36)
[2017-01-07] MEDS ORDERED: CELEXA10 PO (00:37)
[2017-01-07] MEDS ORDERED: DUREZOL (00:39)
[2017-01-07] MEDS ORDERED: AMOXIL500C PO (00:43)
[2017-01-07] MEDS ORDERED: TUSSIN PO (00:44)
[2017-01-07] MEDS ORDERED: BEN25 PO (00:45)
[2017-01-11] MEDS ORDERED: DEMA10T PO (15:24)
[2017-01-11] MEDS ORDERED: KLOR-CON M2020 MEQ PO (15:25)
[2017-01-11] MEDS ORDERED: BUM1 PO (16:19)
[2017-01-11] MEDS ORDERED: BUM2 PO (16:19)
[2017-02-20] MEDS ORDERED: BUM2 PO (10:32)
[2017-02-20] MEDS ORDERED: KLOR-CON M2020 MEQ PO (10:39)
[2017-02-20] MEDS ORDERED: LIPITOR80 MG PO (10:40)
[2017-02-20] MEDS ORDERED: PLAVIX PO (10:40)
[2017-02-20] MEDS ORDERED: TAZTIA X3 PO (10:41)
[2017-02-20] MEDS ORDERED: TOPXL100 PO (10:44)
[2017-02-20] MEDS ORDERED: NITROSTAT0.4 MG SL (10:45)
[2017-02-20] MEDS ORDERED: [UNRECOGNIZED DRUG - OTHER] PO (10:46)
[2017-02-20] MEDS ORDERED: PEP20 PO (10:46)
[2017-02-20] MEDS ORDERED: AMOXIL500 MG PO (10:48)
[2017-02-20] MEDS ORDERED: CO Q-10100 MG PO (10:48)
[2017-02-20] MEDS ORDERED: ELIQUIS 2.5 MG2.5 MG PO (10:57)
== END 2016-11-13 13:25 | disposition home or self-care (01) | DRG 291 ==
LOC: ER 09:04 → 6NO 10:38
PROVIDERS: Emergency Medicine; Internal Medicine; Internal Medicine Cardiovascular Disease; Internal Medicine Nephrology; Radiology Vascular & Interventional Radiology; Registered Nurse
PROC: 0W9B3ZX Drainage of Left Pleural Cavity, Percutaneous Approach, Diagnostic (ICD-10-PCS; 2016-11-08)
PROC: 0W993ZX Drainage of Right Pleural Cavity, Percutaneous Approach, Diagnostic (ICD-10-PCS; principal; 2016-11-12)
DX: I13.0 Hypertensive heart and chronic kidney disease with heart failure and stage 1 through stage 4 chronic kidney disease, or unspecified chronic kidney disease (principal); J96.01 Acute respiratory failure with hypoxia; N17.9 Acute kidney failure, unspecified; I47.2 Ventricular tachycardia; N18.3 Chronic kidney disease, stage 3 (moderate); I48.4 Atypical atrial flutter; I48.2 Chronic atrial fibrillation; E87.70 Fluid overload, unspecified; I50.9 Heart failure, unspecified; I25.10 Atherosclerotic heart disease of native coronary artery without angina pectoris; R94.5 Abnormal results of liver function studies; I34.0 Nonrheumatic mitral (valve) insufficiency; K21.9 Gastro-esophageal reflux disease without esophagitis; D72.829 Elevated white blood cell count, unspecified; I25.5 Ischemic cardiomyopathy; Z95.1 Presence of aortocoronary bypass graft; Z85.46 Personal history of malignant neoplasm of prostate; Z95.4 Presence of other heart-valve replacement; Z79.02 Long term (current) use of antithrombotics/antiplatelets; Z87.891 Personal history of nicotine dependence; Z82.49 Family history of ischemic heart disease and other diseases of the circulatory system
CPT/HCPCS: 32555; 71010; 71020; 71035-50; 80048; 80069; 80076; 81001; 82465; 83615; 83735; 83880; 84100; 84155; 84157; 84484; 85025; 85610; 85730; 87040; 87070; 87205; 88112; 88305; 89051; 93005; 93306; 94640; 96374; 99285; A9270-GY; P9047